=== PATIENT | male | born 1930 | race Caucasian/White ===

== ENCOUNTER 2016-11-26 10:40 | Outpatient (CLI) | payer MEDICARE, BC | END 2016-11-26 10:41 | disposition home or self-care (01) | DX: M51.36 Other intervertebral disc degeneration, lumbar region (principal); M47.896 Other spondylosis, lumbar region ==

== ENCOUNTER 2017-03-04 09:52 | Outpatient (CLI) | payer MEDICARE, BC ==
[2017-03-04 19:16] LABS: ALBUMIN/GLOBULIN RATIO 1.4 (1.0-2.2); BILIRUBIN,TOTAL 0.6 mg/dL (0.2-1.0); BUN - BLOOD UREA NITROGEN 21 mg/dL (6-20); CALCIUM 8.9 mg/dL (8.5-10.3); CARBON DIOXIDE - CO2 29 mmol/L (21-32); CHLORIDE 104 mmol/L (101-111); CHOL/HDL RATIO 2.4 (<5.0); CHOLESTEROL 134 mg/dL; CREATININE 0.9 mg/dL (0.6-1.2); GFR - MDRD 80 (>89); GLUCOSE 96 mg/dL (70-100); HDL CHOLESTEROL 56 mg/dL; POTASSIUM 4.3 mmol/L (3.5-5.0); SODIUM 139 mmol/L (135-145); TOTAL PROTEIN 6.5 g/dL (6.7-8.2); TRIGLYCERIDES 121 mg/dL; VLDL CHOLESTEROL 24 mg/dL
== END 2017-03-04 09:53 | disposition home or self-care (01) ==
LOC: LAB.F 09:52
PROVIDERS: ATTEND Internal Medicine
DX: E78.00 Pure hypercholesterolemia, unspecified (principal); I10 Essential (primary) hypertension; I48.0 Paroxysmal atrial fibrillation
CPT/HCPCS: 36415; 80053; 80061

== ENCOUNTER 2017-06-28 11:25 | Emergency (ER) | payer MEDICARE, BC ==
[2017-06-28 11:37] VITALS: BP 152/85
[2017-06-28] MEDS ORDERED: LIDOCAINE 1% 2 ML VIAL ONE (12:15)
--- NOTE | 2017-06-28 12:30 | ED Physician Documentation ---
PD HPI UPPER EXT INJURY - Stated complaint Stated Complaint: GLF/R ARM LAC - Chief complaint Chief Complaint: Laceration - History obtained from History obtained from: Patient - History of Present Illness Location: Right, Elbow Type of injury: Fall Where injury occurred: Other (parking lot of the goose) Timing - onset: Today Timing - duration: Hours Timing - details: Abrupt onset, Still present Improved by: Rest, Immobilization Worsened by: Moving, Palpating Associated symptoms: No: Weakness, Numbness, Tingling, Swelling Contributing factors: No: Anticoagulated Similar symptoms before: Diagnosis (laceration) Recently seen: Not recently seen - Additonal information Additional information: 87-year-old male with a history of hypertension was walking in the parking lot of the [employer] today when he slipped on some ice and fell onto his right elbow. He is afraid he might of fractured his elbow because he fell with all of his weight on it. He found however that he was able to move the elbow, did not have much pain associated with it, but had a large cut was bleeding. He is come to the emergency department now for suturing. Review of Systems Constitutional: denies: Fever Eyes: denies: Decreased vision Ears: denies: Ear pain Nose: denies: Congestion Respiratory: denies: Cough GI: denies: Vomiting : denies: Dysuria Skin: reports: Laceration (s) PD PAST MEDICAL HISTORY - Past Medical History Cardiovascular: Hypertension, High cholesterol, Atrial fibrillation Respiratory: None Neuro: None Endocrine/Autoimmune: None GI: None : None HEENT: None Psych: None Musculoskeletal: Osteoarthritis Derm: Other Other Past Medical History: Normal skin for age - Past Surgical History Past Surgical History: Yes Ortho: Hip replacement Derm: Skin cancer surgery - Present Medications Home Medications: Ambulatory Orders Medication Instructions Recorded Confirmed Aspirin Chewable [St Jan 81 mg PO DAILY 03/08/16 06/28/17 Aspirin] Atorvastatin Calcium [Lipitor] 80 mg PO DAILY 03/08/16 06/28/17 Felodipine [Felodipine ER] 10 mg PO DAILY 03/08/16 06/28/17 Lisinopril [Prinivil] 10 mg PO DAILY 03/08/16 06/28/17 Cephalexin [Keflex] 500 mg PO TID #15 capsule 06/28/17 - Allergies Allergies/Adverse Reactions: Allergies Allergy/AdvReac Type Severity Reaction Status Date / Time No Known Drug Allergies Allergy Verified 06/28/17 11:38 - Social History Does the pt smoke?: No Smoking Status: Never smoker Does the pt drink ETOH?: Yes ETOH Use: Wine Does the pt have substance abuse?: No - Immunizations Immunizations are current?: No Immunizations: TDAP current <10years PD ED PE NORMAL - Vitals Vital signs reviewed: Yes (hypertensive ) - General General: No acute distress, Well developed/nourished - HEENT HEENT: Atraumatic, PERRL - Neck Neck: Supple, no meningeal sign - Respiratory Respiratory: No respiratory distress - Derm Derm: Normal color, Warm and dry, No rash - Extremities Extremities: No deformity, No edema, Other (There is a 6cm laceration over the right elbow over the olecrenon. There is no FB in the wound and the wound does involve the bursa overlying the olecreonon. There is no fracture evident but the olecrenon is exposed. distal n/v is intact. ) - Neuro Neuro: No motor deficit, No sensory deficit Eye Opening: Spontaneous Motor: Obeys Commands Verbal: Oriented GCS Score: 15 - Psych Psych: Normal mood, Normal affect Results - Vitals Vitals: Vital Signs - 24 hr 06/28/17 11:30 Temperature 36.1 C L Heart Rate 88 Respiratory 18 Rate Blood Pressure 152/85 H O2 Saturation 100 Oxygen O2 Source Room air Procedures - Laceration (location) left elbow Length in cm: 6 Wound type: Linear, Irregular, Clean Neurovascular status: Sensory intact, Motor intact, Vascular intact Tendon involvement: Tendon intact Anesthesia: Lidocaine 1% Wound Preparation: Hibiclens, Irrigated copiously NS, Wound explored, To the base Skin layer closure: [place] Other: Patient tolerated well, No complications, Neurovascular intact, Dressing applied, Tetanus UTD Complexity: Simple PD MEDICAL DECISION MAKING - ED course Complexity details: reviewed results, re-evaluated patient, considered differential, d/w patient ED course: 87-year-old male with a laceration to his right elbow that is deep enough that the olecranon is exposed. Wound is closed with herminia patient tolerates this well and we will put him on some Keflex. Departure - Departure Disposition: 01 Home, Self Care Clinical Impression: Laceration of elbow Qualifiers: Encounter type: initial encounter Laterality: right Qualified Code(s): S51.011A - Laceration without foreign body of right elbow, initial encounter Condition: Stable Instructions: ED Laceration All Follow-Up: Rocio Pfeiffer PA-C [Primary Care Provider] - Prescriptions: Cephalexin [Keflex] 500 mg PO TID #15 capsule
== END 2017-06-28 13:05 | disposition home or self-care (01) ==
LOC: ED 11:25
DX: S51.011A Laceration without foreign body of right elbow, initial encounter (principal); W00.0XXA Fall on same level due to ice and snow, initial encounter; Y93.01 Activity, walking, marching and hiking; Y92.481 Parking lot as the place of occurrence of the external cause; Z79.82 Long term (current) use of aspirin; I48.91 Unspecified atrial fibrillation; I10 Essential (primary) hypertension
CPT/HCPCS: 12002; 99283

== ENCOUNTER 2017-08-22 11:30 | Outpatient (CLI) | payer MEDICARE, BC ==
[2017-08-22 17:53] LABS: ALBUMIN 3.9 g/dL (3.2-5.5); ALBUMIN/GLOBULIN RATIO 1.2 (1.0-2.2); BILIRUBIN,TOTAL 0.8 mg/dL (0.2-1.0); CALCIUM 8.9 mg/dL (8.5-10.3); CREATININE 1.1 mg/dL (0.6-1.2); TOTAL PROTEIN 7.1 g/dL (6.7-8.2)
[2017-08-22 18:38] LABS: BASOPHILS # (AUTO) 0.1 10^3/uL (0.0-0.1); BASOPHILS % (AUTO) 0.6 %; EOSINOPHILS # (AUTO) 0.3 10^3/uL (0.0-0.7); EOSINOPHILS % (AUTO) 3.1 %; HGB - HEMOGLOBIN 13.2 g/dL (14.0-18.0); LYMPHOCYTES # (AUTO) 2.5 10^3/uL (1.5-3.5); LYMPHOCYTES % (AUTO) 23.4 %; MEAN CORPUSCULAR HEMOGLOBIN 27.9 pg (27.0-31.0); MEAN CORPUSCULAR HGB CONC 32.7 g/dL (32.0-36.0); MEAN CORPUSCULAR VOLUME 85.3 fL (80.0-94.0); MEAN PLATELET VOLUME 10.4 fL (7.4-11.4); MONOCYTES % (AUTO) 9.9 %; NEUTROPHILS # (AUTO) 6.7 10^3/uL (1.5-6.6); PLT - PLATELET COUNT 180 10^3/uL (130-450); RED BLOOD COUNT 4.73 10^6/uL (4.70-6.10); RED CELL DISTRIBUTION WIDTH 14.4 % (12.0-15.0); WHITE BLOOD COUNT 10.6 x10^3/uL (4.8-10.8)
== END 2017-08-22 11:31 | disposition home or self-care (01) ==
LOC: LAB.F 11:30
PROVIDERS: ATTEND Physician Assistant Medical
DX: I10 Essential (primary) hypertension (principal); N28.9 Disorder of kidney and ureter, unspecified
CPT/HCPCS: 36415; 80053; 85025

== ENCOUNTER 2017-10-21 12:11 | Outpatient (CLI) | payer MEDICARE, BC ==
[2017-10-21 17:55] LABS: BASOPHILS % (AUTO) 0.3 %; EOSINOPHILS # (AUTO) 0.3 10^3/uL (0.0-0.7); EOSINOPHILS % (AUTO) 2.9 %; HGB - HEMOGLOBIN 13.4 g/dL (14.0-18.0); LYMPHOCYTES # (AUTO) 2.2 10^3/uL (1.5-3.5); LYMPHOCYTES % (AUTO) 22.8 %; MEAN CORPUSCULAR HEMOGLOBIN 27.8 pg (27.0-31.0); MEAN CORPUSCULAR HGB CONC 32.3 g/dL (32.0-36.0); MEAN PLATELET VOLUME 10.5 fL (7.4-11.4); MONOCYTES # (AUTO) 0.9 10^3/uL (0.0-1.0); MONOCYTES % (AUTO) 8.8 %; NEUTROPHILS # (AUTO) 6.4 10^3/uL (1.5-6.6); NEUTROPHILS % (AUTO) 65.2 %; PLT - PLATELET COUNT 186 10^3/uL (130-450); RED BLOOD COUNT 4.83 10^6/uL (4.70-6.10); RED CELL DISTRIBUTION WIDTH 14.8 % (12.0-15.0); WHITE BLOOD COUNT 9.8 x10^3/uL (4.8-10.8)
[2017-10-21 18:45] LABS: % IRON SATURATION 32 % (20-50); IRON 104 ug/dL (45-182); TOTAL IRON BINDING CAPACITY 322 ug/dL (250-450); TRANSFERRIN 230 mg/dL (180-329)
== END 2017-10-21 12:12 | disposition home or self-care (01) ==
LOC: LAB.F 12:11
PROVIDERS: ATTEND Physician Assistant Medical
DX: D64.9 Anemia, unspecified (principal)
CPT/HCPCS: 36415; 82728; 83540; 84466; 85025

== ENCOUNTER 2017-12-04 08:34 | Outpatient (CLI) | payer MEDICARE, BC | END 2017-12-04 08:35 | disposition critical access hospital (66) | LOC: EMS 08:34 | PROVIDERS: ATTEND Surgery | DX: R42 Dizziness and giddiness (principal) | CPT/HCPCS: A0425; A0427 ==

== ENCOUNTER 2017-12-04 09:15 | Observation (INO) | payer MEDICARE, BC ==
--- NOTE | 2017-12-04 09:30 | ED Physician Documentation ---
History of Present Illness - Stated complaint Stated Complaint: DIZZY - Additonal information Additional information: hx from pt and EMS 87 male hx a fib no longer on dig no blood thinners awoke this AM feeling "dizzy" - when specifically questioned it seems he is feeling lightheaded and off balance - no vertigo no ataxia, no focal numbness or weakness, no vision changes denies pain - no HERBERT CP AP no fever cough NVD urinary sx Review of Systems Constitutional: denies: Fever, Chills Cardiac: denies: Chest pain / pressure, Palpitations Respiratory: denies: Dyspnea, Cough GI: denies: Abdominal Pain, Nausea, Vomiting : denies: Dysuria Neurologic: reports: Generalized weakness. denies: Focal weakness, Numbness, Headache, Head injury Endocrine: denies: Easy bruising / bleeding Immunocompromised: denies: Immunocompromised PD PAST MEDICAL HISTORY - Past Medical History Cardiovascular: Hypertension, High cholesterol, Atrial fibrillation Respiratory: None Endocrine/Autoimmune: None GI: None : None HEENT: None Psych: None Musculoskeletal: Osteoarthritis Derm: Other - Past Surgical History Past Surgical History: Yes Ortho: Hip replacement Derm: Skin cancer surgery - Present Medications Home Medications: Ambulatory Orders Medication Instructions Recorded Confirmed Aspirin Chewable [St Jan 81 mg PO DAILY 03/08/16 12/04/17 Aspirin] Atorvastatin Calcium [Lipitor] 80 mg PO QPM 03/08/16 12/04/17 Lisinopril [Prinivil] 10 mg PO BID 03/08/16 12/04/17 Felodipine [Felodipine ER] 5 mg PO DAILY 12/04/17 12/04/17 - Allergies Allergies/Adverse Reactions: Allergies Allergy/AdvReac Type Severity Reaction Status Date / Time No Known Drug Allergies Allergy Verified 12/04/17 09:40 - Social History Does the pt smoke?: No Smoking Status: Never smoker Does the pt drink ETOH?: Yes Does the pt have substance abuse?: No - Immunizations Immunizations are current?: No Immunizations: TDAP current <10years PD ED PE NORMAL - Vitals Vital signs reviewed: Yes - HEENT HEENT: Atraumatic, PERRL, EOMI - Neck Neck: Supple, no meningeal sign - Cardiac Cardiac: RRR - Respiratory Respiratory: No respiratory distress - Abdomen Abdomen: Soft, Non tender - Derm Derm: Normal color - Neuro Neuro: Alert and oriented X 3, commercial lines account executive 2-12 intact, No motor deficit, No sensory deficit, Normal speech, Other (NIHSS zero) Eye Opening: Spontaneous Motor: Obeys Commands Verbal: Oriented GCS Score: 15 Results - Vitals Vitals: Vital Signs - 24 hr 12/04/17 09:13 Temperature 36.4 C L Heart Rate 53 L Respiratory 16 Rate Blood Pressure 180/99 H O2 Saturation 99 Oxygen O2 Source Room air - EKG (time done) 0931 Rate: Rate (enter#) (74) Rhythm: Atrial fibrillation Ischemia: Q waves (inf) - Labs Labs: Laboratory Tests 12/04/17 12/04/17 12/04/17 10:04 10:04 10:04 WBC 8.4 RBC 4.61 L Hgb 13.4 L Hct 39.7 L MCV 86.0 MCH 29.0 MCHC 33.7 RDW 14.8 Plt Count 164 MPV 9.6 Neut # 4.9 Lymph # 2.3 Richardson # 0.9 Eos # 0.2 Baso # 0.0 Absolute Nucleated RBC 0.01 Nucleated RBC % 0.1 Sodium 139 Potassium 4.4 Chloride 105 Carbon Dioxide 26 Anion Gap 8.0 BUN 20 Creatinine 0.8 Estimated GFR (MDRD) 91 Glucose 126 H Calcium 9.1 Troponin I < 0.04 Urine Color Urine Clarity Urine pH Ur Specific [place] Urine Protein Urine Glucose (UA) Urine Ketones Urine Occult Blood Urine Nitrite Urine Bilirubin Urine Urobilinogen Ur Leukocyte Esterase Ur Microscopic Review Urine Culture Comments 12/04/17 10:12 WBC RBC Hgb Hct MCV MCH MCHC RDW Plt Count MPV Neut # Lymph # Richardson # Eos # Baso # Absolute Nucleated RBC Nucleated RBC % Sodium Potassium Chloride Carbon Dioxide Anion Gap BUN Creatinine Estimated GFR (MDRD) Glucose Calcium Troponin I Urine Color YELLOW Urine Clarity CLEAR Urine pH 6.5 Ur Specific [place] 1.015 Urine Protein NEGATIVE Urine Glucose (UA) NEGATIVE Urine Ketones NEGATIVE Urine Occult Blood NEGATIVE Urine Nitrite NEGATIVE Urine Bilirubin NEGATIVE Urine Urobilinogen 0.2 (NORMAL) Ur Leukocyte Esterase NEGATIVE Ur Microscopic Review NOT INDICATED Urine Culture Comments NOT INDICATED - Rads (name of study) [facility] Radiology: See rad report (no acute, bifrontal encephloamalcia, atrophy, venrticular enlargement) PD MEDICAL DECISION MAKING - ED course ED course: ED wup neg for acute process pt is of course at risk for CVA given a fib not on blood thinners will road test and if still symptomatic will need to be admitted for MRI echo etc sx improved but still present will obs for moustapha d/w hospitalist at 1140 also pt states he feels he gets sputum stuck in R side of throat - not related to other sx but I suggested he fup for a sono of neck and scope Departure - Departure Disposition: ED Place in Observation Clinical Impression: Weakness Condition: Good
[2017-12-04 10:16] LABS: BASOPHILS % (AUTO) 0.4 %; EOSINOPHILS # (AUTO) 0.2 10^3/uL (0.0-0.7); EOSINOPHILS % (AUTO) 2.9 %; HGB - HEMOGLOBIN 13.4 g/dL (14.0-18.0); LYMPHOCYTES # (AUTO) 2.3 10^3/uL (1.5-3.5); LYMPHOCYTES % (AUTO) 27.7 %; MEAN CORPUSCULAR HGB CONC 33.7 g/dL (32.0-36.0); MEAN PLATELET VOLUME 9.6 fL (7.4-11.4); MONOCYTES # (AUTO) 0.9 10^3/uL (0.0-1.0); MONOCYTES % (AUTO) 10.4 %; NEUTROPHILS # (AUTO) 4.9 10^3/uL (1.5-6.6); NEUTROPHILS % (AUTO) 58.6 %; PLT - PLATELET COUNT 164 10^3/uL (130-450); RED BLOOD COUNT 4.61 10^6/uL (4.70-6.10); RED CELL DISTRIBUTION WIDTH 14.8 % (12.0-15.0); WHITE BLOOD COUNT 8.4 x10^3/uL (4.8-10.8)
[2017-12-04 10:20] LABS: CALCIUM 9.1 mg/dL (8.5-10.3); CREATININE 0.8 mg/dL (0.6-1.2)
[2017-12-04 10:30] LABS: BILIRUBIN,URINE NEGATIVE (NEGATIVE); GLUCOSE, URINE (UA) NEGATIVE (NEGATIVE); KETONES,URINE (UA) NEGATIVE (NEGATIVE); LEUKOCYTE ESTERASE, URINE NEGATIVE (NEGATIVE); NITRITE,URINE NEGATIVE (NEGATIVE); OCCULT BLOOD,URINE NEGATIVE (NEGATIVE); PH,URINE 6.5 PH (5.0-7.5); PROTEIN,URINE NEGATIVE (NEGATIVE); UROBILINOGEN,URINE 0.2 (NORMAL) E.U./dL (NORMAL)
[2017-12-04 10:31] LABS: CLARITY,URINE CLEAR (CLEAR)
--- NOTE | 2017-12-04 10:41 | CT Report ---
EXAM: CT HEAD EXAM DATE: 12/04/2017 10:21 AM. CLINICAL HISTORY: Dizzy. COMPARISON: None. TECHNIQUE: Multiaxial CT images were obtained from the foramen magnum to the vertex. Reformats: Coron al. IV contrast: None. In accordance with CT protocol optimization, one or more of the following dose reduction techniques w ere utilized for this exam: automated exposure control, adjustment of mA and/or KV based on patient s ize, or use of iterative reconstructive technique. FINDINGS: Parenchyma: Parenchymal volume loss with periventricular regions of low attenuation. No evidence of a cute vascular insult. Bifrontal areas of low-attenuation are seen left greater than right, prior infa rct or prior trauma. No midline shift. No mass effect. Extraaxial Spaces: Extra-axial spaces are mildly prominent. No subdural or epidural collections ident ified. Ventricles: Mildly enlarged. Sinuses and Orbits: Imaged paranasal sinuses, orbits, and mastoids show no significant abnormality. Bones: No evidence of fracture or calvarial defect. Other: Changes are seen from bilateral lens surgery. Otherwise, globes and orbits are unremarkable. V ascular calcifications. IMPRESSION: 1. No acute intracranial abnormality is identified. 2. Parenchymal volume loss and chronic white matter changes with ventricular enlargement. 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 [facility] Referring Provider Line: [phone] SITE ID: [id number]
[2017-12-04] MEDS ORDERED: ONDANSETRON ODT 4 MG TABLET TL PRN (11:47)
[2017-12-04] MEDS ORDERED: ONDANSETRON 4 MG/2 ML VIAL IVP PRN (11:47)
[2017-12-04] MEDS ORDERED: SODIUM CHLORIDE FLUSH 0.9% 10 ML SYRINGE IVP PRN (11:47)
[2017-12-04] MEDS ORDERED: ACETAMINOPHEN 325 MG TABLET PO PRN (11:47)
[2017-12-04] MEDS ORDERED: oxyCODONE 5 MG TABLET PO PRN (11:47)
[2017-12-04] MEDS ORDERED: ASPIRIN CHEW 81 MG TABLET PO SCH (12:00)
--- NOTE | 2017-12-04 12:21 | HISTORY & PHYSICAL EXAMINATION ---
Chief Complaint - Chief Complaint Chief Complaint: profound dizziness History of Present Illness - Admitted From Admitted From:: ER - History Obtained From History obtained from: pt - History of Present Illness HPI Comment/Other: Mr. 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 Pt report he never had such dizziness before but he denies he had fall or any injury from this dizziness. There was no vertigo, or ataxia. Pt denies any other neurological focal deficit. No chest pain, shortness of breath, fever , chill, cough. pt also denies he know he had Afib in the past, and state to him , it is a new diagnosis. CT of head done at ER was unremarkable, Lab test in ER reveals unremarkable as well. Pt is admitted for evaluation and treatment of TIA. History - Past Medical History Cardiovascular: reports: Hypertension, High cholesterol, Atrial fibrillation Respiratory: reports: None Endocrine/Autoimmune: reports: None GI: reports: None : reports: None HEENT: reports: None Psych: reports: None Musculoskeletal: reports: Osteoarthritis Derm: reports: Other MRSA Hx?: No - Past Surgical History Ortho: reports: Hip replacement Derm: reports: Skin cancer surgery - Family & Social History Family History: Mother: (Dad was from ALS, Mom was from aging.), Father: Family History Comment/Other: pt is living with his in [place]. pt had two daughters. Living arrangement: At home Living Situation: With family Social History Notes: pt report he quitted cigarette 35 yrs ago. Pt denies alcohol and drug abuse. - Substance History Use: Uses substance without health or social issues: NONE Abuse: Recurrent use of substance despite neg consequences: NONE Dependence: Experiences withdrawal or developed tolerances: NONE - POLST POLST Status: Full Code Meds/Allgy - Home Medications Home Medications: Ambulatory Orders Medication Instructions Recorded Confirmed Aspirin Chewable [St Jan 81 mg PO DAILY 03/08/16 12/04/17 Aspirin] Atorvastatin Calcium [Lipitor] 80 mg PO QPM 03/08/16 12/04/17 Lisinopril [Prinivil] 10 mg PO BID 03/08/16 12/04/17 Felodipine [Felodipine ER] 5 mg PO DAILY 12/04/17 12/04/17 - Allergies Allergies/Adverse Reactions: Allergies Allergy/AdvReac Type Severity Reaction Status Date / Time No Known Drug Allergies Allergy Verified 12/04/17 09:40 Review of Systems - Constitutional Constitutional: denies: Fatigue, Fever, Chills, Malaise, Weakness, Poor appetite , Diaphoresis, Night sweats, Weight gain, Weight loss - Eyes Eyes: denies: Pain, Irritation, Amaurosis, Blurred vision, Spots in vision, Field loss, Vision loss, Dipolpia - Ears, Nose & Throat Ears, Nose & Throat: denies: Ear pain, Hearing loss, Hearing aids, Tinnitus, Vertigo, Nasal pain, Nasal discharge, Nosebleeds, Nasal obstruction, Nasal congestion, Postnasal drainage, Dentures, Sore throat, Mouth lesions, Bleeding gums - Cardiovascular Cariovascular: denies: Irregular heart rate, Palpitations, Chest pain, Edema, Lightheadedness, Syncope, Exertional dyspnea, Decr. exercise tolerance - Respiratory Respiratory: denies: Cough, Sputum production, Wheezing, Snoring, Hemoptysis, Orthopnea, SOB at rest, SOB with exertion - Gastrointestinal Gastrointestinal: denies: Abdominal pain, Abdominal distention, Constipation, Diarrhea, Change in bowel habits, Rectal bleeding, Black stools, Bloody stools, Nausea, Vomiting, Bile emesis, Jules blood emesis, Coffee grounds emesis, Reflux /heartburn, Poor appetite - Genitourinary Genitourinary: denies: Dysuria, Frequency, Urgency, Hematuria, Incontinence, Flank pain, Nocturia, Urethral discharge - Musculoskeletal Musculoskeletal: denies: Muscle pain, Back pain, Muscle aches, Stiffness, Limited range of motion, Muscle weakness, Gout, Joint pain - Integumentary Integumentary: denies: Rash, Pruritis, Lesions, Dryness, Lumps, Acne, Pigment changes - Neurological Neurological: reports: Dizziness. denies: General weakness, Focal weakness, Headache, Numbness, Memory problems, Pre-existing deficit, Abnormal gait, Seizures, Incoordination, Slurred speech - Psychiatric Psychiatric: denies: Depression, Anxiety, Suicidal, Delusions, Hallucinations, Homicidal - Endocrine Endocrine: denies: Polyuria, Polydypsia, Polyphagia, Intolerance to cold - Hematologic/Lymphatic Hematologic/Lymphatic: denies: Anemia, Bruising, Petechiae, Blood clots, Lymphadenopathy, Bleeding tendencies Exam - Vital Signs Reviewed Vital Signs: Yes Vital Signs: Vital Signs x48h Temp Pulse Resp BP Pulse Ox 12/04/17 11:52 76 16 153/82 H 96 12/04/17 09:13 36.4 C L 53 L 16 180/99 H 99 - Physical Exam General Appearance: positive: No acute distress, Alert. negative: Lethargic Eyes Bilateral: positive: Normal inspection, PERRL, No lid inflammation, Conjunctivae nml ENT: positive: ENT inspection nml, Pharynx nml, No signs of dehydration. negative: Purulent nasal drainage, Pharyngeal erythema, Oral lesions Neck: positive: Nml inspection, Thyroid nml, No JVD, Trachea midline. negative : Thyromegaly, Lymphadenopathy (R), Lymphadenopathy (L), Stiff neck, Swelling/ bruising, Tracheal deviation Respiratory: positive: Chest non-tender, No respiratory distress, Breath sounds nml. negative: Wheezes, Rales, Rhonchi Cardiovascular: positive: No murmur, No gallop. negative: Irregularly irregular , Extrasystoles, Tachycardia, Bradycardia, JVD present, Systolic murmur, Diastolic murmur Abdomen: positive: Non-tender, No organomegaly, Nml bowel sounds, No distention. negative: Tenderness, Guarding, Rebound Back: positive: Nml inspection. negative: CVA tenderness (R), CVA tenderness (L ) Skin: positive: Color nml, No rash, Warm, Dry. negative: Cyanosis, Diaphoresis , Pallor Extremities: positive: Non-tender, Full ROM, Nml appearance. negative: Calf tenderness, Joint swelling, Joann's sign/cords Neurologic/Psychiatric: positive: Oriented x3, Motor nml, Sensation nml, Mood/ affect nml. negative: Weakness, Sensory loss, Facial droop, Slurred/abnml speech, Depressed mood/affect Conclusion/Plan - Problem List (1) Dizziness Conclusion/Plan: concern of pt with TIA, pt has Afib with 81 mg Aspirin MRI of brain ECHO US of Carotid pt report he did not know he had Afib before. pt has high risk for CVA with Afib , CHADS2 score at 8.5% start on Coumadin 5 mg daily, check PT/INR resume Lipitor tele and vital, lab monitor (2) A-fib Conclusion/Plan: pt report it is his new diagnosis, he never was told he had afib. pt's CHADS2 score is 8.5% choice for risk of CVA start on Coumadin and check PT/INR (3) HTN (hypertension) Conclusion/Plan: stable, resume home meds (4) Hyperlipidemia Conclusion/Plan: resume home meds (5) DVT prophylaxis Conclusion/Plan: SCD (6) Full code status Conclusion/Plan: pt request full code status - Lab Results Fish Bones: 12/04/17 10:04 12/04/17 10:04 Core Measures - Anticipated LOS I expect patient to be DC'd or transferred within 96 hours.: Yes - DVT/VTE - Prophylaxis VTE/DVT Device ordered at admit?: Yes VTE/DVT Prophylaxis med ordered at admit?: No Not Ordered - Medical Reason: Not indicated
--- NOTE | 2017-12-04 13:20 | MRI Preliminary Report ---
Exam: MRI BRAIN W/O IMPRESSION: Multiple chronic brain abnormalities are present but there is no evidence for acute abnormality such as ischemic infarct or hemorrhage. [facility] SITE ID: [id number]
--- NOTE | 2017-12-04 13:40 | MRI Report ---
EXAM: MRI BRAIN WITHOUT CONTRAST EXAM DATE: 12/04/2017 12:57 PM. CLINICAL HISTORY: Gait ataxia. Dizziness. COMPARISON: No prior MRI. TECHNIQUE: Multiplanar, multisequence T1-weighted and fluid-sensitive MR sequences of the brain were performed. Sequences optimized for routine evaluation. Other: None. IV Contrast: None. FINDINGS: Diffuse atrophy. Bifrontal left greater than right peripheral encephalomalacia and gliosis, potential ly from old trauma. Mild additional cerebral white matter disease is present consistent with aging an d multifocal chronic small vessel ischemic white matter disease. No acute hemorrhage. No restricted d iffusion to suggest acute or recent ischemic infarct including in the posterior fossa. Mild ventricul omegaly is present, more likely from atrophy than hydrocephalus. No midline shift or abnormal subdura l fluid collection. Incidental mild hyperostosis frontalis interna. Prior lens extractions. Negligible paranasal sinus mucosal thickening. The major arterial skull base flow voids are present. IMPRESSION: Multiple chronic brain abnormalities are present but there is no evidence for acute abnormality such as ischemic infarct or hemorrhage. [facility] Referring Provider Line: [phone] SITE ID: [id number]
[2017-12-04] MEDS: SODIUM CHLORIDE FLUSH 0.9% 10 ML SYRINGE IVP SCH (17:41)
[2017-12-04] MEDS ORDERED: ATORVASTATIN 40 MG TABLET PO SCH (21:00)
--- NOTE | 2017-12-05 00:06 | Ultrasound Preliminary Report ---
Exam: US CAROTID DOPPLER COMPLETE IMPRESSION: 1. Less than 50% stenosis of the internal carotid arteries bilaterally. 2. Antegrade flow in the vertebral arteries bilaterally with nonspecific asymmetric elevated velociti es in the left compared to the right side. Validated velocity measurements with angiographic measurements and velocity criteria are extrapolated from diameter data as defined by the Society of Radiologists in Ultrasound Consensus Conference Radi ology 2003; 229;340-346. [facility] SITE ID: [id number]
[2017-12-05] MEDS: SODIUM CHLORIDE FLUSH 0.9% 10 ML SYRINGE IVP SCH ×2 (00:16→09:19)
--- NOTE | 2017-12-05 00:28 | Ultrasound Report ---
EXAM: CAROTID DOPPLER ULTRASOUND EXAM DATE: 12/04/2017 10:09 PM. CLINICAL HISTORY: New gait ataxia. COMPARISON: None. TECHNIQUE: Real-time sonographic vascular imaging was performed by the computer numerical control programmer through the caroti d arterial system with a linear transducer utilizing color-flow, Doppler flow and spectral analysis. Multiple customer care representative static images were saved for review. FINDINGS: There is moderate calcific atherosclerosis of the right carotid bulb. Mild to moderate calcific ather osclerosis of the left carotid bulb. Mild calcified and soft plaque within the bilateral common carot id arteries. Antegrade flow of the vertebral arteries bilaterally. Right: RCCA Prox: PSV 138.4 cm/sec. RCCA Dist: PSV 43.3 cm/sec, EDV 13.1 cm/sec. RECA: PSV 83.3 cm/sec. R Bulb: PSV 31.1 cm/sec, EDV 0.5 cm/sec, ICA/CCA ratio 0.7. ALEYDA Prox: PSV 45.5 cm/sec, EDV 14.9 cm/sec, ICA/CCA ratio 0.9. ALEYDA Mid: PSV 47.2 cm/sec, EDV 11.5 cm/sec, ICA/CCA ratio 0.9. ALEYDA Dist: PSV 43.8 cm/sec, EDV 12.3 cm/sec, ICA/CCA ratio 1.0. RVA: PSV 15.7 cm/sec. RVA flow direction: Antegrade. Left: LCCA Prox: PSV 91.8 cm/sec. LCCA Dist: PSV 51.9 cm/sec, EDV 8.8 cm/sec. LECA: PSV 84.8 cm/sec. L Bulb: PSV 51 cm/sec, EDV 13 cm/sec, ICA/CCA ratio 1.0. LICA Prox: PSV 50.1 cm/sec, EDV 15.8 cm/sec, ICA/CCA ratio 1.0. LICA Mid: PSV 63.5 cm/sec, EDV 16.2 cm/sec, ICA/CCA ratio 1.2. LICA Dist: PSV 58.9 cm/sec, EDV 19.5 cm/sec, ICA/CCA ratio 1.1. LVA: PSV 73.7 cm/sec. LVA flow direction: Antegrade. Other: None. IMPRESSION: 1. Less than 50% stenosis of the internal carotid arteries bilaterally. 2. Antegrade flow of the vertebral arteries bilaterally with nonspecific asymmetric elevated velociti es on the left compared to the right side. Validated velocity measurements with angiographic measurements and velocity criteria are extrapolated from diameter data as defined by the Society of Radiologists in Ultrasound Consensus Conference Radi ology 2003; 229;340-346. [facility] Referring Provider Line: [phone] SITE ID: [id number]
[2017-12-05 06:19] LABS: BASOPHILS % (AUTO) 0.4 %; EOSINOPHILS # (AUTO) 0.2 10^3/uL (0.0-0.7); EOSINOPHILS % (AUTO) 2.8 %; HGB - HEMOGLOBIN 12.4 g/dL (14.0-18.0); LYMPHOCYTES # (AUTO) 2.7 10^3/uL (1.5-3.5); LYMPHOCYTES % (AUTO) 31.8 %; MEAN CORPUSCULAR HEMOGLOBIN 28.4 pg (27.0-31.0); MEAN CORPUSCULAR HGB CONC 33.3 g/dL (32.0-36.0); MEAN CORPUSCULAR VOLUME 85.2 fL (80.0-94.0); MEAN PLATELET VOLUME 9.7 fL (7.4-11.4); MONOCYTES # (AUTO) 0.9 10^3/uL (0.0-1.0); MONOCYTES % (AUTO) 10.7 %; NEUTROPHILS # (AUTO) 4.5 10^3/uL (1.5-6.6); NEUTROPHILS % (AUTO) 54.3 %; PLT - PLATELET COUNT 169 10^3/uL (130-450); RED BLOOD COUNT 4.36 10^6/uL (4.70-6.10); RED CELL DISTRIBUTION WIDTH 14.7 % (12.0-15.0); WHITE BLOOD COUNT 8.4 x10^3/uL (4.8-10.8)
[2017-12-05 06:22] LABS: INR 1.2 (0.8-1.2); PT - PROTHROMBIN TIME 13.2 secs (9.9-12.6)
[2017-12-05 06:26] LABS: ALBUMIN 3.4 g/dL (3.2-5.5); ALBUMIN/GLOBULIN RATIO 1.2 (1.0-2.2); BILIRUBIN,TOTAL 1.1 mg/dL (0.2-1.0); CALCIUM 8.6 mg/dL (8.5-10.3); CREATININE 1.1 mg/dL (0.6-1.2); TOTAL PROTEIN 6.2 g/dL (6.7-8.2)
[2017-12-05 07:40] VITALS: BP 137/89
[2017-12-05] MEDS ORDERED: POLYETHYLENE GLYCOL 3350 17 GM PACKET PO SCH (09:00)
[2017-12-05] MEDS ORDERED: FELODIPINE ER 2.5 MG TABLET PO SCH (09:00)
[2017-12-05] MEDS ORDERED: WARFARIN 5 MG TABLET PO SCH (09:00)
--- NOTE | 2017-12-05 10:40 | Discharge Plan ---
Discharge Plan Disposition: Home, Self Care Condition: Stable Prescriptions: Warfarin [Coumadin] 5 mg PO DAILY #7 tablet Diet: Regular Activity Restrictions: Activity as Tolerated Shower Restrictions: No (caregiver closely monitor, fall precaution) Weight Bearing: Full Weight Instruction Topics: International Normalized Ratio, Prothrombin Time, Coumadin , TIA, Stroke Prevent Live W Atrial Fib Additional Instructions or Follow Up instructions: You May follow up PCP in 2-3 days, and follow up safety instructor as out-pt. You presented A-Fib and TIA in hospital course. You is advised to begin Coumadin. You may follow up your PCP for continuing management. Should your symptoms return or worsen, may present ER or call 911 for help. No Smoking: If you smoke, Please STOP! Call for help. Follow-up with: Rocio Pfeiffer PA-C [Primary Care Provider] -
--- NOTE | 2017-12-05 10:48 | DISCHARGE SUMMARY ---
Discharge Summary Discharge Date: 12/05/17 Discharging Provider: ORR Primary Care Provider: Dr. Pfeiffer Condition at Discharge: Stable Discharge Disposition: 01 Home, Self Care Discharge Facility Name: home - DIAGNOSES Admission Diagnoses: (1) Dizziness (2) A-fib (3) HTN (hypertension) (4) Hyperlipidemia Discharge Diagnoses with Status of Each Condition: (1) Dizziness resolved. MRI, US of Carotid without acute significant finding. ECHO reveals mild to moderately impaired systolic and diastolic function. Discuss with all test results with pt and family. 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 According to CHADS score, you are recommended to start on anticoagulation therapy. Pt is prescribed Coumadin, pt is advised to follow up PCP and closely be monitored on PT/INR by PCP. (3) HTN (hypertension) stable (4) Hyperlipidemia stable - HPI History of Present Illness: Mr. 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 Pt report he never had such dizziness before but he denies he had fall or any injury from this dizziness. There was no vertigo, or ataxia. Pt denies any other neurological focal deficit. No chest pain, shortness of breath, fever , chill, cough. pt also denies he know he had Afib in the past, and state to him , it is a new diagnosis. CT of head done at ER was unremarkable, Lab test in ER reveals unremarkable as well. Pt is admitted for evaluation and treatment of TIA. - ALLERGIES Allergies/Adverse Reactions: Allergies Allergy/AdvReac Type Severity Reaction Status Date / Time No Known Drug Allergies Allergy Verified 12/04/17 09:40 - MEDICATIONS Home Medications: Ambulatory Orders Medication Instructions Recorded Confirmed Atorvastatin Calcium [Lipitor] 80 mg PO QPM 03/08/16 12/04/17 Lisinopril [Prinivil] 10 mg PO BID 03/08/16 12/04/17 Felodipine [Felodipine ER] 5 mg PO DAILY 12/04/17 12/04/17 Warfarin [Coumadin] 5 mg PO DAILY #7 tablet 12/05/17 - PHYSICAL EXAM AT DISCHARGE General Appearance: positive: No acute distress, Alert. negative: Lethargic Eyes Bilateral: positive: Normal inspection, PERRL, No lid inflammation, Conjunctivae nml ENT: positive: ENT inspection nml, Pharynx nml, No signs of dehydration. negative: Purulent nasal drainage, Pharyngeal erythema, Oral lesions Neck: positive: Nml inspection, Thyroid nml, No JVD, Trachea midline. negative : Thyromegaly, Lymphadenopathy (R), Lymphadenopathy (L), Stiff neck, Carotid bruit, Swelling/bruising, Tracheal deviation Respiratory: positive: Chest non-tender, No respiratory distress, Breath sounds nml. negative: Wheezes, Rales, Rhonchi Cardiovascular: positive: Regular rate & rhythm, No murmur, No gallop. negative : Irregularly irregular, Extrasystoles, Tachycardia, Bradycardia, Systolic murmur, Diastolic murmur Peripheral Pulses: positive: 2+ Abdomen: positive: Non-tender, No organomegaly, Nml bowel sounds, No distention. negative: Tenderness, Guarding, Rebound Back: positive: Nml inspection. negative: CVA tenderness (R), CVA tenderness (L ) Skin: positive: Color nml, No rash, Warm, Dry. negative: Cyanosis, Diaphoresis , Pallor Extremities: positive: Non-tender, Full ROM, Nml appearance. negative: Calf tenderness, Joint swelling, Joann's sign/cords Neurologic/Psychiatric: positive: Oriented x3, Motor nml, Sensation nml, Mood/ affect nml. negative: Weakness, Sensory loss, Facial droop, Slurred/abnml speech, Depressed mood/affect - LABS Result Diagrams: 12/05/17 05:27 12/05/17 05:27 - FOLLOW UP Follow Up: You May follow up PCP in 2-3 days, and follow up spar cap beveler as out-pt. You presented A-Fib and TIA in hospital course. You is advised to begin Coumadin. You may follow up your PCP for continuing management. Should your symptoms return or worsen, may present ER or call 911 for help. - TIME SPENT Time Spent in Discharge (Minutes): 50
== END 2017-12-05 11:25 | disposition home or self-care (01) ==
LOC: EDUNIT# → ED 09:15 → OBS 11:47
PROVIDERS: ADMIT Nurse Practitioner Gerontology; ATTEND Nurse Practitioner Gerontology
DX: R42 Dizziness and giddiness (principal); I48.91 Unspecified atrial fibrillation; I11.9 Hypertensive heart disease without heart failure; E78.5 Hyperlipidemia, unspecified; Z85.828 Personal history of other malignant neoplasm of skin; Z79.82 Long term (current) use of aspirin; Z87.891 Personal history of nicotine dependence
CPT/HCPCS: 36415; 70450; 70551; 80048; 80053; 81003; 83735; 84484; 85025; 85610; 93005; 93306; 93880; 99284; A9270; G0378; 81001; 87086; 99283

== ENCOUNTER 2018-09-18 10:03 | Outpatient (CLI) | payer MEDICARE, BC ==
[2018-09-18 17:36] LABS: HGB - HEMOGLOBIN 13.2 g/dL (14.0-18.0); MEAN CORPUSCULAR HEMOGLOBIN 28.9 pg (27.0-31.0); MEAN CORPUSCULAR HGB CONC 33.2 g/dL (32.0-36.0); MEAN PLATELET VOLUME 10.3 fL (7.4-11.4); RED BLOOD COUNT 4.59 10^6/uL (4.70-6.10); RED CELL DISTRIBUTION WIDTH 13.7 % (12.0-15.0); WHITE BLOOD COUNT 9.1 x10^3/uL (4.8-10.8)
[2018-09-18 17:43] LABS: ALBUMIN 3.8 g/dL (3.2-5.5); ALBUMIN/GLOBULIN RATIO 1.2 (1.0-2.2); ALKALINE PHOSPHATASE 98 IU/L (42-121); ALT ALANINE AMINOTRANSFERASE 14 IU/L (10-60); AST ASPARTATE AMINOTRANSFERASE 21 IU/L (10-42); BILIRUBIN,TOTAL 0.9 mg/dL (0.2-1.0); BUN - BLOOD UREA NITROGEN 19 mg/dL (6-20); CALCIUM 8.9 mg/dL (8.5-10.3); CARBON DIOXIDE - CO2 27 mmol/L (21-32); CHLORIDE 103 mmol/L (101-111); CHOL/HDL RATIO 2.8 (<5.0); CHOLESTEROL 145 mg/dL; CREATININE 1.1 mg/dL (0.6-1.2); GFR - MDRD 63 (>89); GLUCOSE 116 mg/dL (70-100); HDL CHOLESTEROL 52 mg/dL; LDL CHOLESTEROL,CALCULATED 77 mg/dL; LDL/HDL RATIO 1.5 (<3.6); SODIUM 139 mmol/L (135-145); VLDL CHOLESTEROL 16 mg/dL
== END 2018-09-18 10:04 | disposition home or self-care (01) ==
LOC: LAB.F 10:03
PROVIDERS: ATTEND Internal Medicine
DX: I48.0 Paroxysmal atrial fibrillation (principal); E78.00 Pure hypercholesterolemia, unspecified
CPT/HCPCS: 36415; 80053; 80061; 83721; 85025; 85027